=== PATIENT | female | born 1970 | race Caucasian/White ===

== ENCOUNTER 2016-11-23 19:40 | Inpatient (IN) | payer MEDICAID ==
[~2016-11-23] VITALS: Ht 157.5 cm; Wt 92.1 kg
[~2016-11-23 19:40] MED LIST: BACTRIM DS1 TAB PO; ENALAPRIL MALEAT5 MG PO; FAMOTIDINE20 MG PO; GLYBURIDE2.5 MG PO; LAC PO; LEVAQUIN750 MG PO; METFORMIN1000 M1 PO; MOTRIN800 MG PO; VITAMIN D2400 I1 PO; ZOFRAN ODT4 MG PO
[2016-11-23 21:10] LABS: BASOPHIL % 0.4 % (0-2); CALCIUM 9.5 mg/dL (8.5-10.1); CARBON DIOXIDE 27.7 mmol/L (21-32); CREATININE SERUM 1.2 mg/dL (0.6-1.0); PLATELET COUNT 355 x10^3mcL (130-400); POTASSIUM SERUM 4.2 mmol/L (3.5-5.1); RED CELL DISTRIBUTION WIDTH 13.6 % (11.5-14.5)
[2016-11-23 21:12] LABS: UA SPECIFIC GRAVITY <=1.005 (1.005-1.035); microscopic required? YES; urine erythrocyte 3+ (NEGATIVE)
[2016-11-23 21:15] LABS: ALBUMIN 3.7 g/dL (3.4-5.0); BILIRUBIN TOTAL 0.4 mg/dL (0.20-1.00); TOTAL PROTEIN, SERUM 8.6 g/dL (6.4-8.2)
[2016-11-24 02:30] LABS: CHOLESTEROL/HDL RATIO 3.5
[2016-11-24 02:39] LABS: FREE T4 0.99 ng/dL (0.76-1.46); FREE THYROXINE INDEX 3.4 ug/dL (1.4-4.5)
[2016-11-24 02:51] LABS: T3 TOTAL 1.06 ng/mL
[2016-11-24 03:01] VITALS: BP 132/89
[2016-11-24 07:49] LABS: AMPHETAMINE QUAL UR NONE DETECTED (NEG <=1000)
[2016-11-24 09:13] VITALS: BP 120/89
[2016-11-24 11:08] VITALS: Ht 157.5 cm; Wt 92.1 kg
[2016-11-24 14:22] VITALS: BP 137/86
[2016-11-24 17:30] VITALS: BP 129/84
[2016-11-24 21:04] VITALS: BP 127/89
[2016-11-25 05:45] VITALS: BP 119/81
[2016-11-25 06:16] LABS: CALCIUM 8.7 mg/dL (8.5-10.1); CARBON DIOXIDE 27.9 mmol/L (21-32); CREATININE SERUM 1.4 mg/dL (0.6-1.0); MAGNESIUM 1.9 mg/dL (1.8-2.4); PHOSPHOROUS 3.2 mg/dL (2.5-4.9); POTASSIUM SERUM 4.4 mmol/L (3.5-5.1)
[2016-11-25 06:51] LABS: BASOPHIL % 0.4 % (0-2); PLATELET COUNT 292 x10^3mcL (130-400); RED CELL DISTRIBUTION WIDTH 13.8 % (11.5-14.5)
[2016-11-25 09:15] VITALS: BP 142/89
[2016-11-25 16:55] VITALS: BP 124/82
[2016-11-25 20:44] VITALS: BP 139/73
[2016-11-26 05:50] VITALS: BP 134/79
[2016-11-26 06:07] LABS: BASOPHIL % 0.3 % (0-2); PLATELET COUNT 316 x10^3mcL (130-400); RED CELL DISTRIBUTION WIDTH 13.6 % (11.5-14.5)
[2016-11-26 06:12] LABS: CALCIUM 8.8 mg/dL (8.5-10.1); CARBON DIOXIDE 25.2 mmol/L (21-32); CREATININE SERUM 1.2 mg/dL (0.6-1.0); MAGNESIUM 1.8 mg/dL (1.8-2.4); PHOSPHOROUS 3.3 mg/dL (2.5-4.9); POTASSIUM SERUM 4.5 mmol/L (3.5-5.1)
[2016-11-26 09:40] VITALS: BP 128/91
[2016-11-26 17:30] VITALS: BP 138/84
[2016-11-26 21:20] VITALS: BP 141/82
[2016-11-27 05:34] VITALS: BP 128/94
[2016-11-27] MEDS ORDERED: NOR5 PO (08:05)
[2016-11-27] MEDS ORDERED: CIPRO500 MG PO ×2 (08:10→08:11)
[2016-11-27] MEDS ORDERED: LAC PO (08:10)
[2016-11-27 08:22] VITALS: BP 128/94
[2016-11-27 10:17] VITALS: BP 130/87
== END 2016-11-27 11:05 | disposition home or self-care (01) | DRG 720 ==
LOC: ED 19:40 → MU 11-24 01:21 → DU 11-24 01:21 → MU 11-24 08:33
PROVIDERS: Emergency Medicine; ADMIT Family Medicine
DX: A41.9 Sepsis, unspecified organism (principal); N17.0 Acute kidney failure with tubular necrosis; N13.30 Unspecified hydronephrosis; E11.65 Type 2 diabetes mellitus with hyperglycemia; D68.69 Other thrombophilia; E87.8 Other disorders of electrolyte and fluid balance, not elsewhere classified; N26.1 Atrophy of kidney (terminal); R65.20 Severe sepsis without septic shock; N10 Acute pyelonephritis; I16.0 Hypertensive urgency; B96.20 Unspecified Escherichia coli [E. coli] as the cause of diseases classified elsewhere; K80.80 Other cholelithiasis without obstruction; E78.5 Hyperlipidemia, unspecified; E66.9 Obesity, unspecified; Z68.37 Body mass index [BMI] 37.0-37.9, adult; Z79.84 Long term (current) use of oral hypoglycemic drugs
CPT/HCPCS: 80307; 82962; 83880; 84439; C1729; C1769; C1884; J1885; J1956; J2001; J2250; J2405; J3010; J7030; J7040; Q0092; Q9967